=== PATIENT | female | born 1970 | race Caucasian/White ===

== ENCOUNTER 2022-01-27 15:27 | Emergency (ER) | payer BC ==
[~2022-01-27 15:27] MED LIST: AUGMENTIN 875-1 EACH PO; COZAAR50 MG PO; IBUPROFEN600 MG PO; LATUDA20 MG PO; MULTI VITAMIN PO; PERCOCET 5/325 T1 EA PO; ZOFRAN4 MG PO
== END 2022-01-27 16:20 | disposition left against medical advice (07) ==
LOC: ER1 15:27
DX: Z53.21 Procedure and treatment not carried out due to patient leaving prior to being seen by health care provider (principal)